=== PATIENT | male | born 1970 | race African-American/Black ===

== ENCOUNTER 2021-01-18 11:07 | Emergency (ER) | payer MEDICAID, OTHER ==
[~2021-01-18] VITALS: Ht 190.5 cm; Wt 88.5 kg
[2021-01-18 13:45] VITALS: BP 124/84
== END 2021-01-18 13:51 | disposition home or self-care (01) ==
LOC: ER 11:07
DX: S39.012A Strain of muscle, fascia and tendon of lower back, initial encounter (principal); X50.9XXA Other and unspecified overexertion or strenuous movements or postures, initial encounter; Y93.89 Activity, other specified; Y92.89 Other specified places as the place of occurrence of the external cause; Y99.8 Other external cause status

== ENCOUNTER 2021-01-19 16:08 | Emergency (ER) | payer MEDICAID ==
[~2021-01-19] VITALS: Ht 190.5 cm; Wt 89.4 kg
[2021-01-19 16:42] VITALS: BP 131/91
== END 2021-01-19 17:02 | disposition home or self-care (01) ==
LOC: ER 16:08
DX: M54.5 Low back pain (principal); M62.838 Other muscle spasm; Z76.0 Encounter for issue of repeat prescription